=== PATIENT | male | born 1955 | race Caucasian/White ===

== ENCOUNTER 2017-04-24 10:56 | Emergency (ER) | payer OTHER, BC ==
[2017-04-24] MEDS ORDERED: IBUPROFEN 600 MG TABLET (FP) PO ONE ×2 (11:06→11:22)
--- NOTE | 2017-04-24 11:06 | PDOC ---
History of Present Illness - General Chief Complaint: Pain Stated Complaint: RT KNEE PAIN, Time Seen by Provider: 04/24/17 10:58 - History of Present Illness Initial Comments: 04/24/17 11:07 Mr Curiel is a 61 yo M with A history of hypertension who presents emergency department with a complaint of right knee pain. Patient states approximately 10 days ago he was playing soccer He attempted to kick the ball, missed it and injured his knee in the process. Patient states that he's been trying to bear his pain, takes Motrin 200 mg at night. He came in today because he notes that his right knee is a little bit swollen, the pain has not improved. He is ambulatory, with an antalgic gait. Patient reports his pain is 7/10, no radiation, sharp, worse with palpation/ movement of the knee PMH: Hypertension PSH: Right rotator cuff repair Medications: Please see MAR ALLERGIES: Clarithromycin Social: Denies alcohol, drug, cigarette use. GENERAL/CONSTITUTIONAL: No: fever, chills, weakness, loss of appetite. HEAD, EYES, EARS, NOSE AND THROAT: No: change in vision, ear pain, discharge, sore throat, throat swelling. CARDIOVASCULAR: No: chest pain, lightheadedness, palpitations, syncope RESPIRATORY: No: cough, shortness of breath, wheezing, hemoptysis, stridor. GASTROINTESTINAL: No: nausea, vomiting, diarrhea, abdominal cramping, rectal bleeding, constipation. GENITOURINARY: No: dysuria, hematuria, frequency, urgency, flank pain. MUSCULOSKELETAL: Yes: right knee pain No: back pain, neck pain, muscle swelling or pain SKIN AND BREASTS: No: lesions, pallor, rash or easy bruising. NEUROLOGIC: No: headache, vertigo, paresthesias, weakness ENDOCRINE: No: unexplained weight gain or loss HEMATOLOGIC/LYMPHATIC: No: anemia, easy bleeding, swelling nodes. GENERAL: The patient is in no acute distress. HEAD: Normal with no signs of trauma. EYES: PERRLA, EOMI, sclera anicteric, conjunctiva clear. ENT: Ears normal, nares patent, oropharynx clear without exudates. Moist mucous membranes. NECK: Normal range of motion, supple without lymphadenopathy, JVD, or masses. LUNGS: Breath sounds equal, clear to auscultation bilaterally. No wheezes, and no crackles. HEART:Regular rate and rhythm, normal S1 and S2 without murmur, rub or gallop. ABDOMEN: Soft, nontender, normoactive bowel sounds. No guarding, no rebound. No masses palpable. EXTREMITIES: Right knee: Limited extension, due to pain Limited flexion, due to pain. I do palpate some fluid in the joint. Patient is able to actively flex at the right knee. No erythema, no warmth. Sensation is intact. Brisk capillary refill NEUROLOGICAL: Cranial nerves II through XII grossly intact. Normal speech. No focal neurological deficits. MUSCULOSKELETAL: Please see above SKIN: Please see above Past History - Past Medical History Allergies/Adverse Reactions: Allergies Allergy/AdvReac Type Severity Reaction Status Date / Time clarithromycin [From Biaxin] Allergy Verified 04/24/17 10:58 Home Medications: Ambulatory Orders Acetaminophen W/ Codeine #3 [Tylenol # 3 -] 1 tab PO BID #8 tablet MDD 2 Amlodipine Besylate [Norvasc -] 5 mg PO DAILY 04/24/17 Ibuprofen [Advil -] 200 mg PO PRN PRN 04/24/17 Losartan Potassium [Cozaar] 50 mg PO HS 04/24/17 HTN: Yes - Suicide/Smoking/Psychosocial Hx Smoking Status: No Smoking History: Never smoked Number of Cigarettes Smoked Daily: 0 Medical Decision Making - Medical Decision Making 04/24/17 11:10 61-year-old male presented to emergency department with right knee pain has been present for more than 1 week status post injury while playing soccer. Patient differential diagnosis: Meniscal tear, ACL tear, reactive hemearthrosis Will do: Xray Motrin D/c home Follow up with Ortho Clinical impression: right knee injury, initial presentation 04/24/17 12:32 Xray: no fracture noted No official read yet Pt will be discharged to home Follow up with Ortho Clinical impression: possible meniscal tear, initial presentation *DC/Admit/Observation/Transfer Diagnosis at time of Disposition: Injury of right knee Qualifiers: Encounter type: initial encounter Qualified Code(s): S89.91XA - Unspecified injury of right lower leg, initial encounter - Discharge Dispostion Disposition: HOME Condition at time of disposition: Stable Admit: No - Referrals Referrals: Cory Irizarry MD [Staff Physician] - - Patient Instructions Printed Discharge Instructions: DI for Knee Sprain, DI for Knee Pain Additional Instructions: Mr Curiel They give for coming into the emergency Department today. Please be sure to follow up with the study specialist. You can wear a knee brace as is comfortable for you. Please take Motrin 600 mg every 8 hours with food for pain. Please take Tylenol #3 for severe pain Please return to the emergency department for any other concerns or complaints - Post Discharge Activity
[2017-04-24 11:38] VITALS: BP 160/90; PULSE 84; TEMP 98.7; BMI 29.7
== END 2017-04-24 12:59 | disposition home or self-care (01) ==
LOC: FER 10:56
DX: S89.91XA Unspecified injury of right lower leg, initial encounter (principal); X58.XXXA Exposure to other specified factors, initial encounter; Y93.89 Activity, other specified; Y92.9 Unspecified place or not applicable; I10 Essential (primary) hypertension
CPT/HCPCS: 73562-TC-RT-FY; 99282-25

== ENCOUNTER 2017-06-07 06:40 | Day surgery (SDC) | payer OTHER, BC ==
[2017-06-06 08:32] VITALS: BMI 30.1
[2017-06-07] MEDS ORDERED: LIDOCAINE 1%/EPI 1:100000 (20 ML MULTI DOSE VIAL) ONE (07:25)
[2017-06-07] MEDS ORDERED: BUPIVACAINE HCL/PF 0.5% (5MG/ML) 10 ML VIAL ONE (07:26)
[2017-06-07] MEDS ORDERED: MIDAZOLAM HCL 2 MG/2 ML SINGLE DOSE VIAL ONE (07:42)
[2017-06-07] MEDS ORDERED: PROPOFOL 20 ML ONE (07:42)
[2017-06-07] MEDS ORDERED: oxyCODONE HCL 5 MG TABLET PO PRN (07:51)
[2017-06-07] MEDS ORDERED: ONDANSETRON 4 MG/2 ML VIAL IVPUSH PRN (07:51)
[2017-06-07] MEDS ORDERED: PROMETHAZINE HCL 25 MG/1 ML VIAL IVPUSH PRN (07:51)
[2017-06-07] MEDS ORDERED: LACTATED RINGERS SOLUTION 1,000 ML IV SCH (08:00)
[2017-06-07] MEDS ORDERED: LIDOCAINE HCL/PF 2% SDV 5ML VIAL ONE (08:07)
--- NOTE | 2017-06-07 08:09 | HP ---
Satellite [facility] - Chief Complaint Chief Complaint: right knee pain History Source: Patient - Past Medical History Allergies/Adverse Reactions: Allergies Allergy/AdvReac Type Severity Reaction Status Date / Time clarithromycin [From Biaxin] Allergy "rash" Verified 06/06/17 08:32 - Current Medications Current Medications: Home Medications Medication Instructions Recorded Amlodipine Besylate [Norvasc -] 5 mg PO DAILY 04/24/17 Losartan Potassium [Cozaar] 50 mg PO DAILY 04/24/17 Oxycodone HCl 5 mg PO PRN PRN 06/06/17 Temazepam [Restoril] 30 mg PO DAILY 06/07/17 Satellite Physical Exam - Physical Examination Vital Signs: Vital Signs Period Temp Pulse Resp BP Sys/Baez Pulse Ox Last 24 Hr 98.8 F-98.8 F 85-85 20-20 158-158/97-97 95 Extremities: Other (+ joint line tenderness) Satellite Impression/Plan - Impression/Plan Impression: internal [id number] right knee Operative Procedure: arthroscopy right knee Date to be Performed: 06/07/17
[2017-06-07] MEDS ORDERED: DEXAMETHASONE SOD PHOSPHATE 4 MG/1 ML VIAL ONE (08:13)
[2017-06-07] MEDS ORDERED: LIDOCAINE 1%/EPI 1:100000 (50 ML MULTI DOSE VIAL) INF ONE ×2 (08:19→08:24)
[2017-06-07] MEDS ORDERED: BUPIVACAINE HCL/PF 0.5% (5MG/ML) 10 ML VIAL IJ ONE ×2 (08:19→08:24)
[2017-06-07] MEDS ORDERED: KETOROLAC TROMETHAMINE 30 MG/1 ML VIAL ONE (08:20)
--- NOTE | 2017-06-07 08:44 | OP ---
Operative Note - Note: Operative Date: 06/07/17 ([facility]) Pre-Operative Diagnosis: right knee internal derangement Operation: right knee arthroscopy with PMM Post-Operative Diagnosis: Same as Pre-op Surgeon: Jas Prater Anesthesia: General, Local Specimens Removed: shavings Estimated Blood Loss (mls): 5 Operative Report Dictated: Yes
--- NOTE | 2017-06-07 10:16 | SPEC ---
DATE OF OPERATION: 06/07/2017 PREOPERATIVE DIAGNOSIS: Right medial meniscal tear. POSTOPERATIVE DIAGNOSIS: Right medial meniscal tear. PROCEDURE PERFORMED: Arthroscopy right knee with partial medial meniscectomy. SURGICAL ATTENDING: Jas Prater MD ANESTHESIA: General with LMA. ART CONSERVATOR: No respiratory care assistant. ANESTHESIA: General with LMA. CLOSURE: 4-0 nylon. COMPLICATIONS: None. CONDITION: To recovery room in stable condition. DESCRIPTION OF OPERATIVE PROCEDURE: Patient was taken to the operating room on June 07, 2017. General anesthesia with LMA was administered by the anesthesiologist. The right lower extremity was prepped and draped in the usual sterile fashion. The medial and lateral infrapatellar portal sites were infiltrated with 1% Xylocaine with epinephrine. Both portals were then made with a 15 blade followed by a blunt trocar. The scope was placed in the lateral infrapatellar portal and up into the suprapatellar pouch. The knee was inflated with a cocktail of 10 mL of 1% Xylocaine, 10 mL of 0.5% Marcaine, and 20 mL of arthroscopic saline. This was allowed to sit in the knee for a few minutes to allow the anesthetic to work intra-articularly. The scope was placed in the lateral infrapatellar portal and up into the suprapatellar pouch. The pouch was visualized to be clean. The medial and lateral gutters were visualized to be clean. The undersurface of the patella and trochlea were visualized to be intact. With valgus stress on the knee, the medial compartment was entered. The medial meniscus was visualized, probed, and found to have a complex tear of the posterior horn. This was debrided back to smooth stable meniscal tissue using a meniscal biter and arthroscopic shaver. The medial femoral condyle was run and found to be intact as well as the medial tibial plateau. At 90 degrees, the ACL was visualized, probed, and found to be intact. In the figure 4 position, the lateral compartment was entered. The lateral meniscus was visualized, probed, and found to be intact. The lateral femoral condyle was run and found to be intact, as was the lateral tibial plateau. The knee was irrigated with copious amounts of irrigation and then the fluid was drained. The inferomedial portal was closed then with 4-0 nylon. Prior to pulling the trocar from the lateral infrapatellar portal, 20 mL of 0.5% Marcaine was infused into the knee for postoperative analgesia. The trocar was then pulled and the incision was closed with 4-0 nylon suture. A sterile pressure dressing was applied. Patient awakened from anesthesia and transferred to recovery in stable condition. No complication. Estimated blood loss Gerardo [id number]
[2017-06-07] MEDS ORDERED: oxyCODONE HCL 5 MG TABLET PO ONE (10:32)
[2017-06-07] MEDS ORDERED: oxyCODONE HCL 5 MG TABLET ONE (10:35)
[2017-06-07 11:34] VITALS: BP 155/88; PULSE 80; TEMP 98.2
--- NOTE | 2017-06-09 15:28 | PATH ---
Surgical Pathology Report Patient Name: GENOVEVA SINHA [facility]. Rec. #: [id number] /Age/Gender: 1955 (Age: 61) / M Account: [id number] Location: [facility] Taken: 06/07/2017 Received: 06/07/2017 Reported: 06/09/2017 Physicians: Jsa Prater M.D. Specimen(s) Received RIGHT KNEE SHAVINGS Clinical History Tear right knee Final Diagnosis KNEE SHAVINGS, RIGHT, ARTHROSCOPY: FRAGMENTS OF DENSE FIBROCONNECTIVE TISSUE, ADIPOSE TISSUE, AND SYNOVIUM. Electronically Signed Mariya Morataya M.D. Gross Description Received in formalin, labeled "right knee shavings," is a 3.8 x 3.5 x 0.4 cm. aggregate of peacock-yellow soft tissue fragments. A field sales representative portion is submitted in one cassette. /06/07/2017 saudi06/07/2017
== END 2017-06-07 11:30 | disposition home or self-care (01) ==
LOC: JASU-SURG 06:40
PROVIDERS: ATTEND Orthopaedic Surgery
PROC: 0SBC4ZZ Excision of Right Knee Joint, Percutaneous Endoscopic Approach (ICD-10-PCS; principal; 2017-06-07 08:00)
DX: S83.241A Other tear of medial meniscus, current injury, right knee, initial encounter (principal); X58.XXXA Exposure to other specified factors, initial encounter; Y93.9 Activity, unspecified; Y92.9 Unspecified place or not applicable; Y99.9 Unspecified external cause status
CPT/HCPCS: 88304-TC; 94760

== ENCOUNTER 2017-07-08 15:15 | Emergency (ER) | payer OTHER, BC ==
[2017-07-08 15:41] VITALS: BP 162/74; PULSE 72; TEMP 98.7; BMI 30.2
--- NOTE | 2017-07-08 15:43 | PDOC ---
History of Present Illness - General Chief Complaint: Pain Stated Complaint: RT LEG PAIN Time Seen by Provider: 07/08/17 15:40 History Source: Patient Exam Limitations: No Limitations - History of Present Illness Initial Comments: 61 yo M history HTN presents with RLE swelling for past two days. He states that he had recent knee surgery for torn meniscus 1 month ago. He has had consistent swelling to the R knee, but the swelling in his lower leg is new. No redness, open wounds. Denies fever. He was referred by urgent care for sono to rule out DVT. Past History - Past Medical History Allergies/Adverse Reactions: Allergies Allergy/AdvReac Type Severity Reaction Status Date / Time clarithromycin [From Biaxin] Allergy "rash" Verified 07/08/17 15:18 Home Medications: Ambulatory Orders Amlodipine Besylate [Norvasc -] 5 mg PO DAILY 04/24/17 Losartan Potassium [Cozaar] 50 mg PO DAILY 04/24/17 Oxycodone HCl 5 mg PO Q6H PRN #20 capsule MDD 4 06/07/17 Temazepam [Restoril -] 30 mg PO DAILY 06/07/17 Anemia: No Asthma: No Cancer: No Cardiac Disorders: ("sl murmur") CVA: No COPD: No CHF: No Dementia: No Diabetes: No GI Disorders: No Disorders: No HTN: Yes Hypercholesterolemia: No Liver Disease: No Seizures: No Thyroid Disease: No - Surgical History Orthopedic Surgery: Yes (right rotator cuff repair) - Suicide/Smoking/Psychosocial Hx Smoking Status: No Smoking History: Never smoked Have you smoked in the past 12 months: No Number of Cigarettes Smoked Daily: 0 If you are a former smoker, when did you quit?: 1997 Information on smoking cessation initiated: No Hx Alcohol Use: (nightly) Drug/Substance Use Hx: No Substance Use Type: Alcohol Hx Substance Use Treatment: No Review of Systems - Review of Systems Able to Perform ROS?: Yes Comments:: GENERAL/CONSTITUTIONAL: No fever or chills. No weakness. HEAD, EYES, EARS, NOSE AND THROAT: No change in vision. No ear pain or discharge. No sore throat. CARDIOVASCULAR: No chest pain or shortness of breath. RESPIRATORY: No cough, wheezing, or hemoptysis. GASTROINTESTINAL: No nausea, vomiting, diarrhea or constipation. GENITOURINARY: No dysuria, frequency, or change in urination. MUSCULOSKELETAL: +R lower leg swelling. No neck or back pain. SKIN: No rash NEUROLOGIC: No headache, vertigo, loss of consciousness, or change in strength/ sensation. ENDOCRINE: No increased thirst. No abnormal weight change. HEMATOLOGIC/LYMPHATIC: No anemia, easy bleeding, or history of blood clots. ALLERGIC/IMMUNOLOGIC: No hives or skin allergy. *Physical Exam - Vital Signs Last Vital Signs Temp Pulse Resp BP Pulse Ox 98.7 F 72 18 162/74 96 07/08/17 15:20 07/08/17 15:20 07/08/17 15:20 07/08/17 15:20 07/08/17 15:20 - Physical Exam Comments: GENERAL: Awake, alert, and fully oriented, in no acute distress HEAD: No signs of trauma EYES: PERRLA, EOMI, sclera anicteric, conjunctiva clear ENT: Auricles normal inspection, hearing grossly normal, nares patent, oropharynx clear without exudates. Moist mucosa NECK: Normal ROM, supple, no lymphadenopathy, JVD, or masses LUNGS: Breath sounds equal, clear to auscultation bilaterally. No wheezes, and no crackles HEART: Regular rate and rhythm, normal S1 and S2, no murmurs, rubs or gallops ABDOMEN: Soft, nontender, normoactive bowel sounds. No guarding, no rebound. No masses EXTREMITIES: R knee with effusion, but no warmth, no erythema, no rash (has been consistently same size since surgery). Dec ROM R knee. RLE with 2+ pitting edema to mid-alarcon, no calf tenderness. No overlying skin changes. Remainder of extremities with normal range of motion, no edema. No clubbing or cyanosis. No cords, erythema, or tenderness NEUROLOGICAL: Cranial nerves II through XII grossly intact. Normal speech. Motor and sensation intact. SKIN: Warm, Dry, normal turgor, no rashes or lesions noted. *DC/Admit/Observation/Transfer Diagnosis at time of Disposition: Ruptured Bakers cyst - Discharge Dispostion Disposition: HOME Condition at time of disposition: Stable Decision to Admit order: No - Referrals Referrals: Timur Multani MD [Primary Care Provider] - - Patient Instructions Printed Discharge Instructions: DI for Gonzalez's Cyst - Post Discharge Activity
== END 2017-07-08 16:30 | disposition home or self-care (01) ==
LOC: FER 15:15
DX: M66.0 Rupture of popliteal cyst (principal); I10 Essential (primary) hypertension
CPT/HCPCS: 93971-TC; 99283-25

== ENCOUNTER 2022-10-20 05:13 | Day surgery (SDC) | payer OTHER, BC ==
[2022-10-18 14:08] VITALS: BMI 31.7
[2022-10-20 08:31] VITALS: TEMP 98.2
[2022-10-20 09:10] VITALS: BP 157/81; PULSE 61; RESP 18
== END 2022-10-20 09:08 | disposition home or self-care (01) ==
LOC: JASU-ENDO 05:13
PROVIDERS: ATTEND Internal Medicine Gastroenterology
PROC: 06L38CZ Occlusion of Esophageal Vein with Extraluminal Device, Via Natural or Artificial Opening Endoscopic (ICD-10-PCS; 2022-10-20)
PROC: 0DB68ZX Excision of Stomach, Via Natural or Artificial Opening Endoscopic, Diagnostic (ICD-10-PCS; principal; 2022-10-20 08:00)
DX: I85.00 Esophageal varices without bleeding (principal); K29.50 Unspecified chronic gastritis without bleeding; I10 Essential (primary) hypertension
CPT/HCPCS: 88305-TC; 88342-TC

== ENCOUNTER 2024-08-15 06:22 | Day surgery (SDC) | payer OTHER, BC ==
[2024-08-14 09:55] VITALS: BMI 32.1
[2024-08-15] MEDS: LIDOCAINE VISCOUS 2% ORAL/TOP 15 ML UNIT-DOSE CUP MM ONE (07:30)
[2024-08-15] MEDS ORDERED: MIDAZOLAM HCL 2 MG/2 ML SINGLE DOSE VIAL ONE (07:33)
[2024-08-15] MEDS ORDERED: LIDOCAINE VISCOUS 2% ORAL/TOP 15 ML UNIT-DOSE CUP ONE (07:33)
[2024-08-15 08:02] VITALS: RESP 18; TEMP 98.5
[2024-08-15 08:30] VITALS: PULSE 66
[2024-08-15 09:38] VITALS: BP 131/67
== END 2024-08-15 09:07 | disposition home or self-care (01) ==
LOC: JASU-ENDO 06:22
PROVIDERS: ATTEND Internal Medicine Gastroenterology
PROC: 0DJ08ZZ Inspection of Upper Intestinal Tract, Via Natural or Artificial Opening Endoscopic (ICD-10-PCS; principal; 2024-08-15 07:30)
DX: I85.00 Esophageal varices without bleeding (principal); K76.6 Portal hypertension